=== PATIENT | female | born 1960 | race Two or more races ===

== ENCOUNTER 2025-03-03 18:45 | Inpatient (IN) | payer MEDICARE, OTHER ==
[~2025-03-03] VITALS: Ht 149.9 cm; Wt 78.7 kg
--- NOTE | 2025-03-03 19:19 | ED.PDOC ---
History of Present Illness HPI Comments 64-year-old female who came to ER for abnormal lab results. Patient states she has been having episodes of hematuria since January 10, 2025. She has been feeling very weak, fatigued and dizzy recently. Laboratory done earlier showed hemoglobin levels of 7.9 and was advised to come to the ER for further evalua tion management Chief Complaint: Abnormal LAB's Time Seen by MD: 19:19 Reviewed Notes: Nurses Notes Allergies: Coded Allergies: Acetaminophen (Verified Allergy, Unknown, 03/03/25) Iron (Verified Allergy, Unknown, 03/03/25) Oxycodone (Verified Allergy, Unknown, 03/03/25) Information Source: Patient Mode of Arrival: Ambulatory Severity: Moderate Timing: Weeks Duration: Since onset Past Medical History PAST MEDICAL HISTORY: COPD Surgical History: Denies all surgeries TEXTILE ARTIST History: Denies all TEXTILE ARTIST Hx Family History Family History: Reviewed,noncontributory to illness Social History Smoker: Non-Smoker Alcohol: Denies ETOH Use Drugs: Denies Drug Use Lives In: Home Constitutional: denies: chills, diaphoresis, fatigue, fever, malaise, sweats, weakness, others EENTM: denies: blurred vision, double vision, ear bleeding, ear discharge, ear drainage, ear pain, ear ringing, eye pain, eye redness, hearing loss, mouth pain, mouth swelling, nasal discharge, nose bleeding, nose congestion, nose pain, photophobia, tearing, throat pain, throat swelling, voice changes, others Respiratory: denies: cough, hemoptysis, orthopnea, SOB at rest, shortness of breath, SOB with excertion, stridor, wheezing, others Cardiovascular: denies: chest pain, dizzy spells, diaphoresis, Dyspnea on exertion, edema, irregular heart beat, left arm pain, lightheadedness, palpitations, PND, syncope, others Gastrointestinal: denies: abdomen distended, abdominal pain, blood streaked bowels, constipated, diarrhea, dysphagia, difficulty swallowing, hematemesis, melena, nausea, poor appetite, poor fluid intake, rectal bleeding, rectal pain, vomiting, others Genitourinary: reports: hematuria; denies: abnormal vagina bleeding, burning, dyspareunia, dysuria, flank pain, frequency, incontinence, pain, , vagina discharge, urgency, others Neurological: reports: dizziness, weakness; denies: fainting, headache, left sided numbness, left sided weakness, numbness, paresthesia, pre-existing deficit, right sided numbness, right sided weakness, seizure, speech problems, tingling, tremors, others Musculoskeletal: denies: back pain, gout, joint pain, joint swelling, muscle pain, muscle stiffness, neck pain, others Integumetry: denies: bruises, change in color, change in hair/nails, dryness, laceration, lesions, lumps, rash, wounds, others Allergic/Immunocompromised: denies: Difficulty Healing, Frequent Infections, Hives, Itching, others Hematologic/Lymphatic: denies: anemia, blood clots, easy bleeding, easy bruising, swollen glands, others Endocrine: denies: excessive hunger, excessive sweating, excessive thirst, excessive urination, flushing, intolerance to cold, intolerance to heat, unexplained weight gain, unexplained weight loss, others Psychiatric: denies: anxiety, bipolar disorder, depression, hopeless, panic disorder, schizophrenia, sleepless, suicidal, others Physical Exam General Appearance: No Apparent Distress, Normal HEENT: Normal ENT Inspection, Pharynx Normal, TMs Normal Neck: Full Range of Motion, Non-Tender, Normal, Normal Inspection Respiratory: Chest Non-Tender, Lungs Clear, No Accessory Muscle Use, No Respiratory Distress, Normal Breath Sounds Cardiovascular: No Edema, No JVD, No Murmur, No Gallop, Normal Peripheral Pulses, Regular Rate/Rhythm Breast Exam: Deferred Gastrointestinal: No Organomegaly, Non Tender, No Pulsatile Mass, Normal Bowel Sounds, Soft Genitalia: Deferred Pelvic: Deferred Rectal: Deferred Extremities: No calf tenderness, Normal capillary refill, Normal inspection, Normal range of motion, Non-tender, No pedal edema Musculoskeletal : Apperance: Normal Neurologic: Alert, 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 Was a procedure done?: No Differential Dx Considerations may include: Anemia, weakness, electrolyte imbalance, tract infection, cancer X-Ray, Labs, Meds, VS Vital Signs Date Time Temp Pulse Resp B/P (MAP) Pulse Ox O2 Delivery O2 Flow Rate FiO2 03/03/25 21:26 110 03/03/25 20:45 98.3 104 18 125/55 (78) 94 98.3 03/03/25 18:46 98.7 114 20 130/69 92 98.7 Lab Test 03/03/25 19:29 03/03/25 19:14 Range/Units White Blood Count 9.1 # 4.4-10.8 10^3/uL Red Blood Count 3.14 L 4.0-5.20 10^6/uL Hemoglobin 7.8 L 12.2-16.2 g/dL Hematocrit 24.1 L 36.0-46.0 % Mean Corpuscular Volume 76.8 L 80.0-100.0 fL Mean Corpuscular Hemoglobin 24.8 L 28.0-32.0 pg Mean Corpuscular Hemoglobin Concent 32.3 32.0-36.0 g/dL Red Cell Distribution Width 21.2 H 11.8-14.3 % Platelet Count 356 140-450 10^3/uL Mean Platelet Volume 7.2 6.9-10.8 fL Neutrophils (%) (Auto) 84.4 H 37.0-80.0 % Lymphocytes (%) (Auto) 6.1 L 10.0-50.0 % Monocytes (%) (Auto) 6.8 0.0-12.0 % Eosinophils (%) (Auto) 2.0 0.0-7.0 % Basophils (%) (Auto) 0.7 0.0-2.0 % Neutrophils # (Auto) 7.7 1.6-8.6 10 ^3/uL Lymphocytes # (Auto) 0.6 0.4-5.4 10 ^3/uL Monocytes # (Auto) 0.6 0-1.3 10 ^3/uL Eosinophils # (Auto) 0.2 0-0.8 10 ^3/uL Basophils # (Auto) 0.1 0-0.2 10 ^3/uL Nucleated Red Blood Cells 0.4 % Prothrombin Time 10.9 9.3-11.8 sec Prothrombin Time INR 1.03 0.9-1.15 Activated Partial Thromboplast Time 23.0 L 24.5-34.5 SEC Sodium Level 141 136-145 mmol/L Potassium Level 2.6 L 3.5-5.1 mmol/L Chloride Level 100 98-107 mmol/L Carbon Dioxide Level 29 20-31 mmol/L Anion Gap 12 5-15 Blood Urea Nitrogen 9 9-23 mg/dL Creatinine 0.77 0.550-1.02 mg/dL Glomerular Filtration Rate Calc 86 >90 mL/min BUN/Creatinine Ratio 11.7 10.0-20.0 Serum Glucose 144 H 74-106 mg/dL Calcium Level 8.8 8.7-10.4 mg/dL Total Bilirubin 0.3 0.2-1.0 mg/dL Aspartate Amino Transferase (AST) 29 13-40 U/L Alanine Aminotransferase (ALT) 24 7-40 U/L Alkaline Phosphatase 108 46-116 U/L Total Protein 7.0 5.7-8.2 g/dL Albumin 4.6 3.2-4.8 g/dL Urine Color Colorless Yellow Urine Clarity Clear Clear Urine pH 6.5 5.0-9.0 Urine Specific [place] 1.005 1.001-1.035 Urine Protein Negative Negative Urine Ketones Negative Negative Urine Blood Negative Negative /uL Urine Nitrite Negative Negative Urine Bilirubin Negative Negative Urine Urobilinogen Normal Negative mg/dL Urine Leukocyte Esterase Trace Negative /uL Urine RBC <1 0 - 4 /hpf Urine Microscopic WBC 4 0-5 /HPF Urine Squamous Epithelial Cells Few <5 /hpf Urine Bacteria None seen None Seen /hpf Urine Glucose Normal Normal mg/dL Current Medications Medications (Trade) Dose Ordered Sig/Eun Route Start Time Stop Time Status Last Admin Sodium Chloride 500 ml @ 500 mls/hr Q1H ONCE IVB 03/03/25 19:15 03/03/25 20:14 DC 03/03/25 20:56 Time of 1ST Reevaluation: 19:17 Reevaluation 1ST: Unchanged Patient Education/Counseling: Diagnosis, Treatment Family Education/Counseling: No Family Present SEPSIS Sepsis Screen Date sepsis recognized/suspect: Mar 03, 2025 Time Sepsis recognized/suspect: 1845 Recent Procedure: No On Antibiotic Therapy: No Respiratory Rate >20: No Heart Rate >90: Yes Temp<36 C (96.8 F) or >38.3 C: No SBP <90 or MAP <65 mmHG: No New Acute Mental Status Change: No Is the patient on CPAP, BIPAP,: No Physician Orders Type And Screen (03/03/25 19:14) Chest Xray 1 View (03/03/25 19:14) Packedcells -Active Bleeding (03/03/25 19:14) Potassium Er Tablet (Klor-Con Tablet) (03/03/25 22:15) Vital Signs Date Time Temp Pulse Resp B/P (MAP) Pulse Ox O2 Delivery O2 Flow Rate FiO2 03/03/25 21:26 110 03/03/25 20:45 98.3 104 18 125/55 (78) 94 98.3 03/03/25 18:46 98.7 114 20 130/69 92 98.7 Laboratory Tests Test 03/03/25 19:29 White Blood Count 9.1 10^3/uL (4.4-10.8) # Medications Medications Dose Ordered Sig/Eun Route Start Time Stop Time Status Last Admin Dose Admin Sodium Chloride 500 ml @ 500 mls/hr Q1H ONCE IVB 03/03/25 19:15 03/03/25 20:14 DC 03/03/25 20:56 Departure 1 Departure Time of Disposition: 22:05 Impression: Primary Impression: Hematuria Additional Impression: Symptomatic anemia Disposition: ADMITTED INPATIENT Admit to: Med Surg Condition: Guarded Comments 64-year-old female has been having hematuria for a few months. Patient was sent to the emergency department because they noted that she was anemic. Patient was given a blood transfusion. Patient will need to be admitted for stabilization of her blood loss and urology consultation for possible cystoscopy Critical Care Note Critical Care Time?: Yes (35 min-critical care time only) Critical care comment: Total critical care time: Approximately 36 minutes Due to a high probability of clinically significant, life threatening d eterioration, the patient required my highest level of preparedness to intervene emergently and I personally spent this critical care time directly and personally managing the patient. This critical care time included obtaining a history; examining the patient; pulse oximetry; ordering and review of studies; arranging urgent treatment with development of a management plan; evaluation of patient's response to treatment; frequent reassessment; and, discussions with other providers. This critical care time was performed to assess and manage the high probability of imminent, life-threatening deterioration that could result in multi-organ failure. It was exclusive of separately billable procedures and treating other patients. Stability Stability form required: No Heart Score Heart Score: Heart Score Response (Comments) Value History N/A 0 EKG N/A 0 Age N/A 0 Risk Factors N/A 0 Troponin N/A 0 Total 0 I personally scribed for ЕЛЕНА RODRIGUEZ MD ([email or web address]) on 03/03/25 at 19:19. Electronically submitted by Skyler Calero ([facility]). ЕЛЕНА RODRIGUEZ MD Mar 03, 2025 19:19
[2025-03-03 19:39] LABS: Hematocrit 24.1 % (36.0-46.0); Hemoglobin 7.8 g/dL (12.2-16.2); Mean Corpuscular Hemoglobin 24.8 pg (28.0-32.0); Mean Corpuscular Volume 76.8 fL (80.0-100.0); Nucleated Red Blood Cells % 0.4 %
[2025-03-03 19:54] LABS: INR 1.03 (0.9-1.15); Partial Thromboplastin Time 23.0 SEC (24.5-34.5); Prothrombin Time 10.9 sec (9.3-11.8)
[2025-03-03 20:05] LABS: Alanine Aminotransferase 24 U/L (7-40); Albumin 4.6 g/dL (3.2-4.8); Alkaline Phosphatase 108 U/L (46-116); Anion Gap 12 (5-15); BUN/Creatinine Ratio 11.7 (10.0-20.0); Calcium 8.8 mg/dL (8.7-10.4); Carbon Dioxide 29 mmol/L (20-31); Chloride 100 mmol/L (98-107); Sodium 141 mmol/L (136-145); Total Protein 7.0 g/dL (5.7-8.2)
[2025-03-03 20:12] LABS: Bilirubin, Total 0.3 mg/dL (0.2-1.0); Blood Urea Nitrogen 9 mg/dL (9-23); Glucose 144 mg/dL (74-106); Potassium 2.6 mmol/L (3.5-5.1)
[2025-03-03 20:33] LABS: Urine Protein, UAD Negative (Negative)
[2025-03-03] MEDS: SODIUM CHLORIDE 0.9% 500 ML IVB ONE (20:56)
--- NOTE | 2025-03-03 21:28 | ECG ---
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
--- NOTE | 2025-03-03 21:42 | DVH ---
EXAM: XY CHEST XRAY 1 VIEW CLINICAL HISTORY: SOB TECHNIQUE: Single frontal view of the chest WID: COMPARISON: None FINDINGS: Lines and tubes: None Chest: The heart size and pulmonary vasculature is within normal limits. Calcified plaque projects over the aortic arch. No pleural effusion, pneumothorax, or consolidation. Linear bibasilar scarring or atelectasis. The osseous structures are grossly intact. Degenerative changes of the bilateral shoulders. IMPRESSION: 1. No acute cardiopulmonary abnormality.
[2025-03-03] MEDS: POTASSIUM CHL 20 Meq TABLET PO ONE (22:34)
--- NOTE | 2025-03-03 22:54 | DVHHPRES ---
History of Present Illness Resident Creating Document: DOUG DAVID RESIDENT History of Present Illness Gaye Garcia is a 64-year-old female patient who presents to ED referred from outpatient clinic due to abnormal labs positive for microcytic anemia. Patient does report hematuria since 01/10/2025 with diagnosis of a bladder polyp, symptoms are associated with generalized weakness, fatigue and insomnia. Per patient, urology (Dr. Mann and Kaci HOTEL ASSOCIATE) had ordered clearance by drainage design coordinator and Cardiology, drainage design coordinator did clear patient but cardiology clearance was still pending due to prolonged appointment time. Denies any associated symptoms, including unintentional weight loss, fever, chills and dysuria. Past medical history: 2014 breast cancer with lumpectomy requiring chemotherapy and radiation, 2019 cervical cancer status post hysterectomy complicated with fistula requiring colostomy bag also required chemotherapy and radiation. 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 Surgical history: Hysterectomy, colostomy bag placement in two opportunities, lumpectomy, right hip replacement, spine surgery Family history: Sister had breast cancer Social history: Lives in [place] alone, sister lives next door (she is her next of kin). Current tobacco abuse (50 pack-year history of smoking). Denies current alcohol and other drug abuse Allergies: Percocet Home medication: [place], albuterol, Trelegy, gabapentin, furosemide, esomeprazole PCP: Dr. Minh Hines Control Systems Drafting Officer: Dr. Aquino Patient seen and examined at bedside. Currently has no new complaints. We will admit to telemetry, obtain Cardiology consult for cardiological clearance in urology consult for eventual cystoscopy during inpatient. Patient wants to sign AMA to go smoke, offered nicotine patches and she accepted. Past Medical History Per HPI Past Surgical History Per HPI Family History Per HPI Past Social History Per HPI Review of Systems Review of Systems Per HPI Allergies: Coded Allergies: Acetaminophen (Verified Allergy, Unknown, 03/03/25) Iron (Verified Allergy, Unknown, 03/03/25) Oxycodone (Verified Allergy, Unknown, 03/03/25) Exam Vital Signs Vital Signs Date Time Temp Pulse Resp B/P (MAP) Pulse Ox O2 Delivery O2 Flow Rate FiO2 03/03/25 21:26 110 03/03/25 20:45 98.3 18 125/55 (76) 94 98.3 Exam Patient lying in bed, in no acute distress General: Lucid, afebrile, mucosae are dry, pale conjunctivae Cardiovascular: Normal S1 and S2, tachycardia. No murmurs, gallops or rubs Respiratory: Regular ventilation mechanics, tachypnea. Reduced generalized lung sounds Abdomen: Soft, nontender, no organomegaly, normal bowel sounds MSK/skin: Mobilizes 4 limbs. Skin is dry and warm Neurological: Oriented in 3 spheres. No motor no sensitive deficits. Pupils are isocoric and reactive Labs/Xrays Labs Test 03/03/25 19:29 03/03/25 19:14 Range/Units White Blood Count 9.1 # 4.4-10.8 10^3/uL Red Blood Count 3.14 L 4.0-5.20 10^6/uL Hemoglobin 7.8 L 12.2-16.2 g/dL Hematocrit 24.1 L 36.0-46.0 % Mean Corpuscular Volume 76.8 L 80.0-100.0 fL Mean Corpuscular Hemoglobin 24.8 L 28.0-32.0 pg Mean Corpuscular Hemoglobin Concent 32.3 32.0-36.0 g/dL Red Cell Distribution Width 21.2 H 11.8-14.3 % Platelet Count 356 140-450 10^3/uL Mean Platelet Volume 7.2 6.9-10.8 fL Neutrophils (%) (Auto) 84.4 H 37.0-80.0 % Lymphocytes (%) (Auto) 6.1 L 10.0-50.0 % Monocytes (%) (Auto) 6.8 0.0-12.0 % Eosinophils (%) (Auto) 2.0 0.0-7.0 % Basophils (%) (Auto) 0.7 0.0-2.0 % Neutrophils # (Auto) 7.7 1.6-8.6 10 ^3/uL Lymphocytes # (Auto) 0.6 0.4-5.4 10 ^3/uL Monocytes # (Auto) 0.6 0-1.3 10 ^3/uL Eosinophils # (Auto) 0.2 0-0.8 10 ^3/uL Basophils # (Auto) 0.1 0-0.2 10 ^3/uL Nucleated Red Blood Cells 0.4 % Prothrombin Time 10.9 9.3-11.8 sec Prothrombin Time INR 1.03 0.9-1.15 Activated Partial Thromboplast Time 23.0 L 24.5-34.5 SEC Sodium Level 141 136-145 mmol/L Potassium Level 2.6 L 3.5-5.1 mmol/L Chloride Level 100 98-107 mmol/L Carbon Dioxide Level 29 20-31 mmol/L Anion Gap 12 5-15 Blood Urea Nitrogen 9 9-23 mg/dL Creatinine 0.77 0.550-1.02 mg/dL Glomerular Filtration Rate Calc 86 >90 mL/min BUN/Creatinine Ratio 11.7 10.0-20.0 Serum Glucose 144 H 74-106 mg/dL Calcium Level 8.8 8.7-10.4 mg/dL Total Bilirubin 0.3 0.2-1.0 mg/dL Aspartate Amino Transferase (AST) 29 13-40 U/L Alanine Aminotransferase (ALT) 24 7-40 U/L Alkaline Phosphatase 108 46-116 U/L Total Protein 7.0 5.7-8.2 g/dL Albumin 4.6 3.2-4.8 g/dL Urine Color Colorless Yellow Urine Clarity Clear Clear Urine pH 6.5 5.0-9.0 Urine Specific [place] 1.005 1.001-1.035 Urine Protein Negative Negative Urine Ketones Negative Negative Urine Blood Negative Negative /uL Urine Nitrite Negative Negative Urine Bilirubin Negative Negative Urine Urobilinogen Normal Negative mg/dL Urine Leukocyte Esterase Trace Negative /uL Urine RBC <1 0 - 4 /hpf Urine Microscopic WBC 4 0-5 /HPF Urine Squamous Epithelial Cells Few <5 /hpf Urine Bacteria None seen None Seen /hpf Urine Glucose Normal Normal mg/dL SEPSIS Sepsis Screen Date sepsis recognized/suspect: Mar 03, 2025 Time Sepsis recognized/suspect: 1845 Recent Procedure: No On Antibiotic Therapy: No Respiratory Rate >20: No Heart Rate >90: Yes Temp<36 C (96.8 F) or >38.3 C: No SBP <90 or MAP <65 mmHG: No New Acute Mental Status Change: No Is the patient on CPAP, BIPAP,: No Physician Orders Type And Screen (03/03/25 19:14) Chest Xray 1 View (03/03/25 19:14) Admit (03/03/25 22:52) Code Status (03/03/25 22:52) Acetaminophen Tablet (Tylenol Tablet) (03/03/25 23:00) Complete Blood Count (03/04/25 04:00) Comprehensive Metabolic Panel (03/04/25 04:00) Npo (Nothing By Mouth) Diet (03/04/25 Breakfast) Echo 2d Mode Cardiac Dop (03/03/25 22:52) Morphine Sulfate Injection (03/03/25 23:00) Oxygen By Nasal Cannula (03/03/25 22:52) Stat Ekg For Chest Pain (03/03/25 22:52) Notify Of Changes From Base (03/03/25 22:52) Dietetic Technician For 24 Hours (03/03/25 22:52) Emergency Dysrhythmia Protocol (03/03/25 22:52) Rhythm Strips Once Every Shift (03/03/25 22:52) Vital Signs Date Time Temp Pulse Resp B/P (MAP) Pulse Ox O2 Delivery O2 Flow Rate FiO2 03/03/25 21:26 110 03/03/25 20:45 98.3 104 18 125/55 (78) 94 98.3 03/03/25 18:46 98.7 114 20 130/69 92 98.7 Laboratory Tests Test 03/03/25 19:29 White Blood Count 9.1 10^3/uL (4.4-10.8) # Medications Medications Dose Ordered Sig/Eun Route Start Time Stop Time Status Last Admin Dose Admin Potassium Chloride 40 meq ONCE ONCE PO 03/03/25 22:15 03/03/25 22:16 DC 03/03/25 22:34 40 MEQ Sodium Chloride 500 ml @ 500 mls/hr Q1H ONCE IVB 03/03/25 19:15 03/03/25 20:14 DC 03/03/25 20:56 500 MLS/HR Assessment/Plan Assessment/Plan Sepsis probably secondary to pneumonia Acute on chronic respiratory failure Community-acquired pneumonia Gram-positive/Gram-negative COPD exacerbation Patient was tachycardic, presents soft blood pressures, and neutrophilia Patient currently on oxygen therapy (nasal cannula 2 L/min). Normally she uses this amount of oxygen only at nighttime Currently on bronchodilators, IV steroids, IV fluids and empiric IV antibiotic (ceftriaxone and azithromycin) Obtain leo cultures (blood, urine and sputum). COVID and influenza swabs were negative Severe microcytic anemia Iron deficient anemia Hematuria secondary to bladder polyp Patient presents microcytic anemia laboratories. Monitor H&H Consulted cardiology for clearance for eventual cystoscopy Consulted urology specialist to evaluate completing cystoscopy during admission Transfuse PRBCs when hemoglobin is less than seven Patient required IV fluids for resuscitation. Awaiting echocardiogram to evaluate LVEF UA shows microscopic hematuria EMR shows the patient has iron allergy, per patient she does not have any allergies. Currently ordered IV iron since patient says she has no allergies. Hypokalemia Hypomagnesemia Hypophosphatemia Replenish Polyneuropathy likely secondary to chemotherapy/radiotherapy Continue gabapentin Newly diagnosed prediabetes Currently on insulin sliding scale Gave advice on healthy lifestyle habits Tobacco abuse Non adherence Fifty pack-year history of smoking. Consult patient is strongly on tobacco cessation for over 16 minutes Offer patient nicotine patches. Patient signed AMA to go out smoking Insomnia Indicated melatonin History of breast and cervical cancer status post surgery, chemotherapy and radiation Complicated enterocutaneous fistulas - status post colostomy Per patient she was cleared by drainage design coordinator as outpatient Goals of care discussed with patient for over 18 minutes: Full code status Discussed plan with Dr. Murray, patient and nurses: Consulted Cardiology to get cardiological clearance for eventual cystoscopy, pending urological evaluation to determine whether cystoscopy can be completed as inpatient. Patient has poor prognosis. Plan discussed with: Patient, Other (Nurses) My Orders Orders - DOUG DAVID RESIDENT Procedure Category Date Status Time Admit ADMIT 03/03/25 Transmitted 22:52 Code Status CODE 03/03/25 Transmitted 22:52 Acetaminophen Tablet PHA 03/03/25 Transmitted (Tylenol Tablet) 23:00 Complete Blood Count LAB 03/04/25 Verified 04:00 Comprehensive LAB 03/04/25 Verified Metabolic Panel 04:00 Npo (Nothing By DIET 03/04/25 Transmitted Mouth) Diet Breakfast Echo 2d Mode Cardiac US 03/03/25 Transmitted DOP 22:52 Morphine Sulfate PHA 03/03/25 Transmitted Injection 23:00 Oxygen By Nasal RT 03/03/25 Transmitted Cannula 22:52 Stat Ekg For Chest AJAY 03/03/25 Transmitted Pain 22:52 Notify Of Changes [facility] 03/03/25 Transmitted From Base 22:52 Dietetic Technician For [facility] 03/03/25 Transmitted 24 Hours 22:52 Emergency Dysrhythmia [facility] 03/03/25 Transmitted Protocol 22:52 Rhythm Strips Once [facility] 03/03/25 Transmitted Every Shift 22:52 Date of Service: Mar 03, 2025 Billing Provider: PARVEZ MENDOZA MD Common Visit Codes: 38505-QOHYGEE INP/OBS CARE (HIGH) Secondary Visit Codes: 53932-ESSMAOSU CARE PLAN 30 MINUTES DOUG DAVID RESIDENT Mar 03, 2025 22:54
[2025-03-03] MEDS ORDERED: ACETAMINOPHEN 325 MG TAB PO PRN (23:00)
[2025-03-03] MEDS ORDERED: MORPHINE SULFATE INJ 2 MG/ml SYRG IV PRN (23:00)
[2025-03-04] VITALS (14 sets, daily range): BP systolic 92–127; BP diastolic 43–63; PULSE 73–110; RESP 17–20; TEMP 97.3–98.3; O2SAT 2–100
[2025-03-04] MEDS ORDERED: LEVALBUTEROL HCL 1.25 MG/3 ML NEB NEB SCH
[2025-03-04] MEDS: PANTOPRAZOLE 40 MG/10 ML VIAL INJ IV ONE (00:03)
[2025-03-04] MEDS: AZITHROMYCIN 250 MG TAB PO ONE (00:41)
[2025-03-04 00:43] LABS: Magnesium 1.1 mg/dL (1.6-2.6)
[2025-03-04 00:48] LABS: Ferritin 5.1 ng/mL (10-291)
--- NOTE | 2025-03-04 00:55 | DVH ---
Exam: US BLADDER History: Bladder polyp Comparison: None Date: 03/04/2025 12:16 AM Technique: Grayscale and color Doppler ultrasound of the pelvis was obtained. Multiple images of the bladder were obtained. Findings: Suboptimal assessment with poor visualization of the bladder. There is bladder wall thickening. No d efinite lesions are visualized. IMPRESSION: 1. Suboptimal assessment without definite bladder lesion visualized. Given suboptimal assessment, CT is suggested in further evaluation as clinically indicated.
[2025-03-04 01:11] LABS: Iron 13.0 ug/dL (50-170)
[2025-03-04 01:30] LABS: Total Iron Binding Capacity 433.0 ug/dL (250-425)
[2025-03-04] MEDS: MELATONIN 5 MG TAB PO ONE (01:45)
[2025-03-04 01:50] LABS: Cholesterol 107.0 mg/dL (< 200)
[2025-03-04 01:51] LABS: HDL Cholesterol 33.0 mg/dL (40-59); Triglycerides 157.0 mg/dL (< 150)
[2025-03-04 02:10] LABS: Amphetamine Screen, Urine Neg (NEGATIVE); Barbiturate Scree,Urine Neg (NEGATIVE); Benzodiazephine Screen, Urine Neg (NEGATIVE); Opiate Scree,Urine Neg (NEGATIVE); Phencyclidine Screen, Urine Neg (NEGATIVE)
[2025-03-04 02:11] LABS: Cannabinoid Screen, Urine Neg (NEGATIVE); Cocaine Screen, Urine Neg (NEGATIVE)
[2025-03-04 05:44] LABS: COVID19 ANTIGEN SOFIA FIA NEGATIVE (NEGATIVE)
[2025-03-04] MEDS: GABAPENTIN 100 MG CAP PO SCH (05:51)
[2025-03-04] MEDS ORDERED: FURO1TAB31 PO (06:25)
[2025-03-04] MEDS ORDERED: FLUT1AER3 IN (06:27)
[2025-03-04] MEDS ORDERED: GABA-1308 PO (06:27)
[2025-03-04] MEDS ORDERED: OMEP20TA PO (06:27)
[2025-03-04] MEDS: IPRATROPIUM BROM 0.5 MG/2.5ML INH SOL NEB SCH (06:59)
[2025-03-04] MEDS: LEVALBUTEROL HCL 1.25 MG/3 ML NEB NEB SCH (06:59)
[2025-03-04 07:09] LABS: Hematocrit 22.4 % (36.0-46.0); Hemoglobin 7.1 g/dL (12.2-16.2); Mean Corpuscular Hemoglobin 24.5 pg (28.0-32.0); Mean Corpuscular Volume 77.3 fL (80.0-100.0); Nucleated Red Blood Cells % 0.2 %
[2025-03-04 07:29] LABS: Alanine Aminotransferase 18 U/L (7-40); Alkaline Phosphatase 91 U/L (46-116); Anion Gap 12 (5-15); BUN/Creatinine Ratio 11.7 (10.0-20.0); Carbon Dioxide 29 mmol/L (20-31); Chloride 103 mmol/L (98-107); Sodium 144 mmol/L (136-145); Total Protein 6.0 g/dL (5.7-8.2)
[2025-03-04 07:30] LABS: Albumin 3.9 g/dL (3.2-4.8)
[2025-03-04 07:31] LABS: Blood Urea Nitrogen 7 mg/dL (9-23); Calcium 8.4 mg/dL (8.7-10.4); Glucose 111 mg/dL (74-106); Potassium 2.6 mmol/L (3.5-5.1)
[2025-03-04 07:38] LABS: Bilirubin, Total 0.3 mg/dL (0.2-1.0)
[2025-03-04] MEDS: PANTOPRAZOLE 40 MG/10 ML VIAL INJ IV SCH (09:26)
[2025-03-04] MEDS: NICOTINE 21MG/24 HR TOPICAL PATCH TD SCH (09:27)
--- NOTE | 2025-03-04 09:30 | DVHINCON2 ---
Date Seen: Mar 04, 2025 Referring Physician MD Natasha resident Reason for Consultation Cardiac risk stratification History of Present Illness This is a 64-year-old female patient who presents to the emergency room with chief complaint of hematuria and lightheadedness. The patient reports that she has been experiencing hematuria since January 10, 2025. A few days before emergency room arrival, she noticed that she began to feel lightheaded which prompted her to come to the emergency room for further evaluation. Cardiology has now been consulted for cardiac risk stratification for upcoming cystoscopy. Initial twelve lead electrocardiogram done in the emergency room reveals sinus tachycardia with nonspecific ST segment changes to lateral leads. She denies any cardiac symptoms such as chest pain, shortness of breath, or palpitations. Significant past medical history includes congestive heart failure, COPD, breast cancer and cervical cancer status post chemotherapy and radiation as well as left breast lumpectomy and total hysterectomy, and rectovaginal fistula status post colostomy. 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 Past Medical History Past medical history reviewed. No other significant than mentioned above. Past Surgical History Left breast lumpectomy Total hysterectomy Colostomy Family History: Seizure disorder G8 FATHER Family History Family history reviewed. Social History Patient has a 20 pack-year history, smokes a half a pack per day Denies illicit drug use Denies alcohol use Allergies: Coded Allergies: Acetaminophen (Verified Allergy, Unknown, 03/03/25) Iron (Verified Allergy, Unknown, 03/03/25) Oxycodone (Verified Allergy, Unknown, 03/03/25) Home Meds Reported Medications Omeprazole (Gnp Omeprazole) 20 Mg Tab, 1 TAB PO DAILY, #90 TAB 1 Refill 03/04/25 Gabapentin (Gabapentin) 100 Mg Cap, 1 CAP PO TID, #90 CAP 2 Refills 03/04/25 Acyavdtjahs-Znsvfpczjwqr-Rhxqx (Trelegy Ellipta 100-62.5-25 Mcg/INH) 1 Aer Aer, 1 AER IN, AER 03/04/25 Furosemide (Lasix) 40 Mg Tab, 40 MG PO DAILY, TAB 03/04/25 Home Meds Home medications reviewed. Current Medications Current Medications Medications (Trade) Dose Ordered Sig/Eun Route PRN Reason Start Time Stop Time Status Last Admin Acetaminophen (Tylenol Tablet) 325 mg Q4HP PRN PO MILD PAIN (1-3 PAIN SCALE) 03/03/25 23:00 03/03/25 23:07 DC Morphine Sulfate 2 mg Q4HPRN PRN IV SEVERE PAIN (7-10 PAIN SCALE) 03/03/25 23:00 Pantoprazole Sodium (Protonix) 40 mg BID IV 03/04/25 10:00 Nicotine (Nicoderm 21MG/ 24HR) 1 patch DAILY TD 03/04/25 10:00 Melatonin (Melatonin) 5 mg HS PO 03/04/25 22:00 Ceftriaxone Sodium 50 ml @ 100 mls/hr DAILY@09 IV 03/05/25 09:00 Azithromycin (Zithromax Tablet) 250 mg DAILY PO 03/05/25 10:00 Ipratropium [place] (Atrovent Medneb) 0.[address] [facility] 03/04/25 06:00 Levalbuterol HCl (Xopenex Medneb) 0.625 mg Q6HWA NEB 03/04/25 00:00 03/04/25 00:45 DC Gabapentin (Neurontin Capsule) 100 mg TID PO 03/04/25 06:00 03/04/25 05:51 Levalbuterol HCl (Xopenex Medneb) 0.625 mg Q6HWA NEB 03/04/25 06:00 Review of Systems Constitutional: No symptom reported Ears, Nose, & Throat: No symptom reported Eyes: No symptom reported Neurological: Lightheadedness Pulmonary/Respiratory: No symptoms reported Cardiovascular: No symptom reported Gastrointestinal: No symptom reported Genitourinary: Dysuria Musculoskeletal: No symptom reported Skin: No symptom reported Psychiatric: No symptom reported Endocrine: No symptom reported Hematologic/Lymphatic: No symptom reported Vital Signs Vital Signs Date Time Temp Pulse Resp B/P (MAP) Pulse Ox O2 Delivery O2 Flow Rate FiO2 03/04/25 05:58 98.1 86 17 92/43 (59) 96 98.1 03/04/25 03:40 Nasal Cannula* 2 28 Physical Exam General Appearance: Cooperative. Obese Pulmonary/Respiratory: Clear, bilateral breaths sounds. Cardiovascular/Chest: Regular rate and rhythm. Peripheral Pulses: 2+ Radial (R). 2+ Radial (L). 2+ Pedal (R). 2+ Pedal (L) Abdominal Exam: Normal bowel sounds. Ankle Exam: Negative ankle edema Lower extremities: Negative lower extremity edema Neuro/Mental Status: A/OX4, coherent. Thoughts/Psych: Normal thought pattern. Appropriate mood and affect. Good judgment and insight. Appearance: No acute distress. Skin Exam: Normal inspection. Normal color. Warm and dry. Labs/Diagnostic Data Labs Test 03/04/25 05:19 03/04/25 04:54 03/04/25 00:33 03/03/25 19:29 Range/Units White Blood Count 6.5 # 4.4-10.8 10^3/uL Red Blood Count 2.90 L 4.0-5.20 10^6/uL Hemoglobin 7.1 L 12.2-16.2 g/dL Hematocrit 22.4 L 36.0-46.0 % Mean Corpuscular Volume 77.3 L 80.0-100.0 fL Mean Corpuscular Hemoglobin 24.5 L 28.0-32.0 pg Mean Corpuscular Hemoglobin Concent 31.6 L 32.0-36.0 g/dL Red Cell Distribution Width 20.9 H 11.8-14.3 % Platelet Count 305 140-450 10^3/uL Mean Platelet Volume 7.5 6.9-10.8 fL Neutrophils (%) (Auto) 81.0 H 37.0-80.0 % Lymphocytes (%) (Auto) 7.6 L 10.0-50.0 % Monocytes (%) (Auto) 7.6 0.0-12.0 % Eosinophils (%) (Auto) 3.0 0.0-7.0 % Basophils (%) (Auto) 0.8 0.0-2.0 % Neutrophils # (Auto) 5.3 1.6-8.6 10 ^3/uL Lymphocytes # (Auto) 0.5 0.4-5.4 10 ^3/uL Monocytes # (Auto) 0.5 0-1.3 10 ^3/uL Eosinophils # (Auto) 0.2 0-0.8 10 ^3/uL Basophils # (Auto) 0.1 0-0.2 10 ^3/uL Nucleated Red Blood Cells 0.2 % Sodium Level 144 136-145 mmol/L Potassium Level 2.6 L 3.5-5.1 mmol/L Chloride Level 103 98-107 mmol/L Carbon Dioxide Level 29 20-31 mmol/L Anion Gap 12 5-15 Blood Urea Nitrogen 7 L 9-23 mg/dL Creatinine 0.60 0.550-1.02 mg/dL Glomerular Filtration Rate Calc 100 >90 mL/min BUN/Creatinine Ratio 11.7 10.0-20.0 Serum Glucose 111 H 74-106 mg/dL Calcium Level 8.4 L 8.7-10.4 mg/dL Total Bilirubin 0.3 0.2-1.0 mg/dL Aspartate Amino Transferase (AST) 24 13-40 U/L Alanine Aminotransferase (ALT) 18 7-40 U/L Alkaline Phosphatase 91 46-116 U/L Total Protein 6.0 5.7-8.2 g/dL Albumin 3.9 3.2-4.8 g/dL Influenza Type A Antigen Negative Negative Influenza Type B Antigen Negative Negative SARS-CoV-2 Antigen (Rapid) Negative NEGATIVE Lactic Acid Level 1.1 0.4-2.0 mmol/L Iron Level 13 L 50-170 ug/dL Total Iron Binding Capacity 433 H 250-425 ug/dL Percent Iron Saturation 3.0 L 15-50 % Reticulocyte Count (auto) 3.30 H 0.5-1.5 % Prothrombin Time 10.9 9.3-11.8 sec Prothrombin Time INR 1.03 0.9-1.15 Activated Partial Thromboplast Time 23.0 L 24.5-34.5 SEC Hemoglobin A1c 5.9 H <5.7 % A1C Phosphorus Level 2.3 L 2.4-5.1 mg/dL Magnesium Level 1.1 L 1.6-2.6 mg/dL Ferritin 5.1 L 10-291 ng/mL Triglycerides Level 157 H < 150 mg/dL Cholesterol Level 107 < 200 mg/dL LDL Cholesterol 65 < 100 mg/dL HDL Cholesterol 33 L 40-59 mg/dL Vitamin B12 Level 469 211-911 pg/mL Vitamin D 25-Hydroxy 30.6 30.0-100 ng/mL Folic Acid 11.63 >5.38 ng/mL Thyroid Stimulating Hormone (TSH) 2.68 0.55-4.78 uIU/mL Urine Opiates Screen Neg NEGATIVE Urine Fentanyl Screen Neg NEGATIVE Urine Barbiturates Screen Neg NEGATIVE Urine Phencyclidine Screen Neg NEGATIVE Urine Amphetamines Screen Neg NEGATIVE Urine Benzodiazepines Screen Neg NEGATIVE Urine Cocaine Screen Neg NEGATIVE Urine Cannabinoids Screen Neg NEGATIVE Test 03/03/25 19:14 Range/Units Urine Color Colorless Yellow Urine Clarity Clear Clear Urine pH 6.5 5.0-9.0 Urine Specific [place] 1.005 1.001-1.035 Urine Protein Negative Negative Urine Ketones Negative Negative Urine Blood Negative Negative /uL Urine Nitrite Negative Negative Urine Bilirubin Negative Negative Urine Urobilinogen Normal Negative mg/dL Urine Leukocyte Esterase Trace Negative /uL Urine RBC <1 0 - 4 /hpf Urine Microscopic WBC 4 0-5 /HPF Urine Squamous Epithelial Cells Few <5 /hpf Urine Bacteria None seen None Seen /hpf Urine Glucose Normal Normal mg/dL Assessment Preprocedural cardiovascular examination Chronic HFpEF, NYHA class II Acute anemia Hematuria Hypokalemia Hypomagnesemia COPD Prediabetes History of breast and cervical cancer Plan/Recommendation We will continue with the following plan/recommendations (): Transthoracic echocardiogram reviewed with and reveals EF approximately 55-60%. Revised Cardiac Risk Index (Johnathan criteria): 1 point (1.1% risk of major cardiac event). The patient denies any underlying history of coronary artery disease. At this time patient has no cardiac symptoms. Prior to admission, the patient reports a good functional capacity. Per cardiology standpoint, patient is at an acceptable-risk for moderate-risk surgery. There is no additional cardiac work-up indicated prior to surgery. Thank you for allowing us to participate in this patient's care. Please call if you have any questions or concerns. Critical care time spent: 44 minutes This medical document was created using an electronic medical record system with voice recognition software and computerized dictation system. Although this document has been carefully reviewed, there might still be some phonetic and typographical errors. Occasional wrong-word or ``sound-alike substitutions may have occurred due to the inherent limitations of voice recognition software. These areas are purely typographical due to imperfections of the software pro grams and do not reflect any compromise in the patient's medical care. Please read the chart carefully and recognize, using context, where these substitutions have occurred. Plan discussed with: Patient NYHA Physical activity limitations: Class2(Slight)fatigue,sob (palpitatns, angina w activityv) Date of Service: Mar 04, 2025 Billing Provider: NURIA REID Cardiology Common Codes: [id number] INP/OBS CARE (High) Cardiology Consultation Codes: [id number] CONSULT <45MIN NURIA REID Mar 04, 2025 09:30
[2025-03-04] MEDS ORDERED: MAGNESIUM SULFATE 1GM/100ML 100 ML IV SCH (12:00)
[2025-03-04] MEDS ORDERED: IRON SUCROSE COMPLEX 110 ML IV SCH (12:00)
[2025-03-04] MEDS ORDERED: DEXTROSE (50%) 50ML SYRG IV PRN (12:00)
[2025-03-04] MEDS ORDERED: POTASSIUM CHL 20MEQ/100ML 100 ML IV SCH (12:00)
[2025-03-04] MEDS ORDERED: POTASSIUM PHOSPHATE 22 MEQ in SODIUM CHL 0.9% 100 ML IV ONE (12:00)
[2025-03-04] MEDS: POTASSIUM CHL 20MEQ/100ML 100 ML IV ONE (12:08)
[2025-03-04] MEDS: methylPREDNISolone SOD SUCC 40 MG/ML VL IV ONE (12:14)
--- NOTE | 2025-03-04 14:08 | DVHPN2 ---
Subjective 64-year-old female who was admitted for hematuria that she had for almost 2 months and she has seen Urology as an outpatient was scheduled to have a cystoscopy however she needed cardiology clearance Now she comes anemic her hemoglobin was 7.8 which dropped to 7.1 this morning and therefore she will be transfused with packed RBCs Consulted cardiology and urology Changes from previous H/P or p: Changes Objective Vitals Vital Signs Date Time Temp Pulse Resp B/P (MAP) Pulse Ox O2 Delivery O2 Flow Rate FiO2 03/04/25 12:58 97.9 73 19 108/54 (72) 99 97.9 03/04/25 10:00 Nasal Cannula 2.0 03/04/25 10:00 28 Intake/Output Intake and Output 03/04/25 07:00 Intake Total 200 ml Output Total 100 ml Balance 100 ml Intake Oral 200 ml Output Stool Total 100 ml General Appearance: Alert, Oriented X3, Cooperative Lungs: Clear to auscultation, Normal air movement Cardiovascular: Regular rate, Normal S1, Normal S2 Abdomen: Normal bowel sounds, Soft, No tenderness Extremities: No edema Medications Current Medications Medications Dose Ordered Sig/Eun Route Start Time Stop Time Status Last Admin Dose Admin Morphine Sulfate 2 mg Q4HPRN PRN IV 03/03/25 23:00 Pantoprazole Sodium 40 mg BID IV 03/04/25 10:00 03/04/25 09:26 40 MG Nicotine 1 patch DAILY TD 03/04/25 10:00 03/04/25 09:27 1 PATCH Melatonin 5 mg HS PO 03/04/25 22:00 Ceftriaxone Sodium 50 ml @ 100 mls/hr DAILY@09 IV 03/05/25 09:00 Azithromycin 250 mg DAILY PO 03/05/25 10:00 Ipratropium [place] 0.5 mg Q6HWA NEB 03/04/25 06:00 Gabapentin 100 mg TID PO 03/04/25 06:00 03/04/25 13:33 100 MG Levalbuterol HCl 0.625 mg Q6HWA NEB 03/04/25 06:00 Potassium Chloride 100 ml @ 50 mls/hr Q2H IV 03/04/25 12:00 03/04/25 15:59 Methylprednisolone Sodium Succinate 40 mg BID IV 03/04/25 22:00 Diagnostic Test (Pha) 1 strip ACHS 03/04/25 17:00 Insulin Human Regular ACHS SC 03/04/25 17:00 Dextrose 50 ml UD PRN IV 03/04/25 12:00 Magnesium Sulfate/ Dextrose 100 ml @ 100 mls/hr Q1HR IV 03/04/25 16:00 03/04/25 17:59 Laboratory Results Laboratory Tests 03/04/25 05:19 Chemistry Test 03/03/25 19:29 03/04/25 05:19 Albumin 4.6 g/dL (3.2-4.8) 3.9 g/dL (3.2-4.8) Calcium Level 8.8 mg/dL (8.7-10.4) 8.4 mg/dL (8.7-10.4) L Magnesium Level 1.1 mg/dL (1.6-2.6) L Phosphorus Level 2.3 mg/dL (2.4-5.1) L Total Protein 7.0 g/dL (5.7-8.2) 6.0 g/dL (5.7-8.2) Coagulation Test 03/03/25 19:29 Prothrombin Time 10.9 sec (9.3-11.8) Prothrombin Time INR 1.03 (0.9-1.15) Activated Partial Thromboplast Time 23.0 SEC (24.5-34.5) L Lipid panel Test 03/03/25 19:29 Cholesterol Level 107 mg/dL (< 200) HDL Cholesterol 33 mg/dL (40-59) L Triglycerides Level 157 mg/dL (< 150) H LFT Test 03/03/25 19:29 03/04/25 05:19 Alanine Aminotransferase (ALT) 24 U/L (7-40) 18 U/L (7-40) Alkaline Phosphatase 108 U/L (46-116) 91 U/L (46-116) Aspartate Amino Transferase (AST) 29 U/L (13-40) 24 U/L (13-40) Total Bilirubin 0.3 mg/dL (0.2-1.0) 0.3 mg/dL (0.2-1.0) HgA1c, TSH Test 03/03/25 19:29 Hemoglobin A1c 5.9 % A1C (<5.7) H Thyroid Stimulating Hormone (TSH) 2.68 uIU/mL (0.55-4.78) Urinalysis Test 03/03/25 19:14 Urine Color Colorless (Yellow) Urine Clarity Clear (Clear) Urine pH 6.5 (5.0-9.0) Urine Specific [place] 1.005 (1.001-1.035) Urine Protein Negative (Negative) Urine Ketones Negative (Negative) Urine Blood Negative /uL (Negative) Urine Nitrite Negative (Negative) Urine Bilirubin Negative (Negative) Urine Urobilinogen Normal mg/dL (Negative) Urine Leukocyte Esterase Trace /uL (Negative) Urine RBC <1 /hpf (0 - 4) Urine Microscopic WBC 4 /HPF (0-5) Urine Squamous Epithelial Cells Few /hpf (<5) Urine Bacteria None seen /hpf (None Seen) Urine Glucose Normal mg/dL (Normal) Microbiology Microbiology Date/Time Source Procedure Growth Status 03/04/25 04:54 Nose MRSA Screen - Final Complete Assessment/Plan Assessment/Plan Hematuria Anemia due to iron deficiency and blood loss Congestive heart failure, systolic versus diastolic, acute on chronic COPD Chronic respiratory failure on home O2 Prediabetic History of breast cancer and cervical cancer Acute hypoxic respiratory failure Hypokalemia Hypomagnesemia Hypophosphatemia 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 daily Cardiology consult Plan discussed with: Patient My Orders Orders - SHASHANK LOCKETT MD Procedure Category Date Status Time Cardiac DIET 03/04/25 Transmitted Diet-2gna,Lofat,Lochol Lunch Date of Service: Mar 04, 2025 Billing Provider: SHASHANK LOCKETT MD Common Visit Codes: NOT BILLABLE SHASHANK LOCKETT MD Mar 04, 2025 14:08
[2025-03-04] MEDS: IOHEXOL 300 MG/ML 100ML BOTTLE IJ ONE (14:16)
[2025-03-04] MEDS: POTASSIUM CHL 20 Meq TABLET PO ONE (14:31)
[2025-03-04] MEDS: FUROSEMIDE 40 MG TAB PO ONE (14:31)
[2025-03-04] MEDS: MAGNESIUM SULFATE 1GM/100ML 100 ML IV SCH (14:32)
--- NOTE | 2025-03-04 16:51 | DVHINCON2 ---
Date of service: Mar 04, 2025 History of Present Illness History Source: Patient, RN Notes, MD Notes, Old Records Exam Limitations: No limitations HPI 64 yo female hx of total hysterectomy and radiation for treatment of cervical cancer. She has been having gross hematuria with clots for the past month, sometimes it is difficult to void. A recent MRI showed a 1 cm nodule in the right posterior bladder near the trigone with enhancement. She is pending cystoscpy with TURBT but needs cardiac clearance. Past medical history: 2014 breast cancer with lumpectomy requiring chemotherapy and radiation, 2019 cervical cancer status post hysterectomy complicated with fistula requiring colostomy bag also required chemotherapy and radiation. 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 Surgical history: Hysterectomy, colostomy bag placement in two opportunities, lumpectomy, right hip replacement, spine surgery Family history: Sister had breast cancer Social history: Lives in [place] alone, sister lives next door (she is her next of kin). Current tobacco abuse (50 pack-year history of smoking). Denies current alcohol and other drug abuse Allergies: Percocet Home medication: [place], albuterol, Trelegy, gabapentin, furosemide, esomeprazole PCP: Dr. Minh Hines Interactive Designer: Dr. Aquino Patient seen and examined at bedside. Currently has no new complaints. We will admit to telemetry, obtain Cardiology consult for cardiological clearance in urology consult for eventual cystoscopy during inpatient. Patient wants to sign AMA to go smoke, offered nicotine patches and she accepted. Home Meds Reported Medications Omeprazole (Gnp Omeprazole) 20 Mg Tab, 1 TAB PO DAILY, #90 TAB 1 Refill 03/04/25 Gabapentin (Gabapentin) 100 Mg Cap, 1 CAP PO TID, #90 CAP 2 Refills 03/04/25 Qldjlsajimj-Liucstotehkt-Vmqhv (Trelegy Ellipta 100-62.5-25 Mcg/INH) 1 Aer Aer, 1 AER IN, AER 03/04/25 Furosemide (Lasix) 40 Mg Tab, 40 MG PO DAILY, TAB 03/04/25 Past Medical History Cardiac: HTN Renal/: Hematuria Patient Family History: Seizure disorder G8 FATHER Smoker: Positive, 1 pack per day Review of Systems Genitourinary: Hematuria H&P Exam Vital Signs Vital Signs Date Time Temp Pulse Resp B/P (MAP) Pulse Ox O2 Delivery O2 Flow Rate FiO2 03/04/25 14:31 108/54 03/04/25 12:58 97.9 73 19 99 97.9 03/04/25 10:00 Nasal Cannula 2.0 03/04/25 10:00 28 General Appeara: Well developed, Well nourished, Normal Appearance Neuro/Mental St: Alert, Oriented Appearance: Appropriate appearance, Appropriate insight Eye contact/ Speech: Cooperative, Good eye contact, Normal speech Skin Exam: Normal inspection, Normal color, Warm/dry Labs/Xrays Labs Test 03/04/25 06:17 03/04/25 05:19 03/04/25 04:54 03/04/25 00:33 Range/Units Stool Occult Blood Negative Negative Stool Occult Blood Sample #3 Negative White Blood Count 6.5 # 4.4-10.8 10^3/uL Red Blood Count 2.90 L 4.0-5.20 10^6/uL Hemoglobin 7.1 L 12.2-16.2 g/dL Hematocrit 22.4 L 36.0-46.0 % Mean Corpuscular Volume 77.3 L 80.0-100.0 fL Mean Corpuscular Hemoglobin 24.5 L 28.0-32.0 pg Mean Corpuscular Hemoglobin Concent 31.6 L 32.0-36.0 g/dL Red Cell Distribution Width 20.9 H 11.8-14.3 % Platelet Count 305 140-450 10^3/uL Mean Platelet Volume 7.5 6.9-10.8 fL Neutrophils (%) (Auto) 81.0 H 37.0-80.0 % Lymphocytes (%) (Auto) 7.6 L 10.0-50.0 % Monocytes (%) (Auto) 7.6 0.0-12.0 % Eosinophils (%) (Auto) 3.0 0.0-7.0 % Basophils (%) (Auto) 0.8 0.0-2.0 % Neutrophils # (Auto) 5.3 1.6-8.6 10 ^3/uL Lymphocytes # (Auto) 0.5 0.4-5.4 10 ^3/uL Monocytes # (Auto) 0.5 0-1.3 10 ^3/uL Eosinophils # (Auto) 0.2 0-0.8 10 ^3/uL Basophils # (Auto) 0.1 0-0.2 10 ^3/uL Nucleated Red Blood Cells 0.2 % Sodium Level 144 136-145 mmol/L Potassium Level 2.6 L 3.5-5.1 mmol/L Chloride Level 103 98-107 mmol/L Carbon Dioxide Level 29 20-31 mmol/L Anion Gap 12 5-15 Blood Urea Nitrogen 7 L 9-23 mg/dL Creatinine 0.60 0.550-1.02 mg/dL Glomerular Filtration Rate Calc 100 >90 mL/min BUN/Creatinine Ratio 11.7 10.0-20.0 Serum Glucose 111 H 74-106 mg/dL Calcium Level 8.4 L 8.7-10.4 mg/dL Total Bilirubin 0.3 0.2-1.0 mg/dL Aspartate Amino Transferase (AST) 24 13-40 U/L Alanine Aminotransferase (ALT) 18 7-40 U/L Alkaline Phosphatase 91 46-116 U/L Total Protein 6.0 5.7-8.2 g/dL Albumin 3.9 3.2-4.8 g/dL Influenza Type A Antigen Negative Negative Influenza Type B Antigen Negative Negative SARS-CoV-2 Antigen (Rapid) Negative NEGATIVE Lactic Acid Level 1.1 0.4-2.0 mmol/L Iron Level 13 L 50-170 ug/dL Total Iron Binding Capacity 433 H 250-425 ug/dL Percent Iron Saturation 3.0 L 15-50 % Test 03/03/25 19:29 03/03/25 19:14 Range/Units Reticulocyte Count (auto) 3.30 H 0.5-1.5 % Prothrombin Time 10.9 9.3-11.8 sec Prothrombin Time INR 1.03 0.9-1.15 Activated Partial Thromboplast Time 23.0 L 24.5-34.5 SEC Hemoglobin A1c 5.9 H <5.7 % A1C Phosphorus Level 2.3 L 2.4-5.1 mg/dL Magnesium Level 1.1 L 1.6-2.6 mg/dL Ferritin 5.1 L 10-291 ng/mL Triglycerides Level 157 H < 150 mg/dL Cholesterol Level 107 < 200 mg/dL LDL Cholesterol 65 < 100 mg/dL HDL Cholesterol 33 L 40-59 mg/dL Vitamin B12 Level 469 211-911 pg/mL Vitamin D 25-Hydroxy 30.6 30.0-100 ng/mL Folic Acid 11.63 >5.38 ng/mL Thyroid Stimulating Hormone (TSH) 2.68 0.55-4.78 uIU/mL Urine Opiates Screen Neg NEGATIVE Urine Fentanyl Screen Neg NEGATIVE Urine Barbiturates Screen Neg NEGATIVE Urine Phencyclidine Screen Neg NEGATIVE Urine Amphetamines Screen Neg NEGATIVE Urine Benzodiazepines Screen Neg NEGATIVE Urine Cocaine Screen Neg NEGATIVE Urine Cannabinoids Screen Neg NEGATIVE Urine Color Colorless Yellow Urine Clarity Clear Clear Urine pH 6.5 5.0-9.0 Urine Specific [place] 1.005 1.001-1.035 Urine Protein Negative Negative Urine Ketones Negative Negative Urine Blood Negative Negative /uL Urine Nitrite Negative Negative Urine Bilirubin Negative Negative Urine Urobilinogen Normal Negative mg/dL Urine Leukocyte Esterase Trace Negative /uL Urine RBC <1 0 - 4 /hpf Urine Microscopic WBC 4 0-5 /HPF Urine Squamous Epithelial Cells Few <5 /hpf Urine Bacteria None seen None Seen /hpf Urine Glucose Normal Normal mg/dL Microbiology Date/Time Source Procedure Growth Status 03/04/25 04:54 Nose MRSA Screen - Final Complete Assessment/Plan Problem List: (1) Bladder mass (2) Hx of radiation therapy (3) Hematuria (4) Symptomatic anemia (5) Hx of cervical cancer Plan CT pending consider vesical artery embolization with Dr. Worrell IR cysto and TURBT TBA as outpatient after cardiac clearance transfuse for PRBC <7 Plan discussed with: Patient, Other DUSTIN RHOADES NP Mar 04, 2025 16:51
[2025-03-04] MEDS: InsuLIN REG 1unit/0.01ml Soln (100units/ml) SC SCH (17:00)
[2025-03-04] MEDS: ACCU-CHEK COMFORT CURVE STRIP VI SCH (17:00)
[2025-03-04] MEDS: POTASSIUM CHLORIDE 40 MEQ, LIDOCAINE 1% (LOCAL ANESTH.) 4 ML in SODIUM CHL 0.9% 250 ML IV ONE (17:18)
[2025-03-04 18:18] LABS: Chloride 103 mmol/L (98-107); Sodium 141 mmol/L (136-145)
[2025-03-04 18:19] LABS: Anion Gap 10 (5-15); Carbon Dioxide 28 mmol/L (20-31)
[2025-03-04 18:24] LABS: BUN/Creatinine Ratio 12.7 (10.0-20.0)
[2025-03-04 18:25] LABS: Magnesium 2.1 mg/dL (1.6-2.6)
[2025-03-04 18:38] LABS: Blood Urea Nitrogen 9 mg/dL (9-23); Calcium 8.5 mg/dL (8.7-10.4); Glucose 186 mg/dL (74-106); Potassium 3.5 mmol/L (3.5-5.1)
[2025-03-04] MEDS: POTASSIUM PHOSPHATE 22 MEQ in SODIUM CHL 0.9% 100 ML IV ONE (19:16)
[2025-03-04] MEDS: MELATONIN 5 MG TAB PO SCH (22:19)
[2025-03-04] MEDS: methylPREDNISolone SOD SUCC 40 MG/ML VL IV SCH (22:19)
[2025-03-05] VITALS (17 sets, daily range): BP systolic 92–125; BP diastolic 57–65; PULSE 80–109; RESP 16–20; TEMP 97.7–98.2; O2SAT 91–100
[2025-03-05 07:28] LABS: Hematocrit 21.4 % (36.0-46.0); Mean Corpuscular Hemoglobin 24.0 pg (28.0-32.0); Mean Corpuscular Volume 77.2 fL (80.0-100.0); Nucleated Red Blood Cells % 0.1 %
[2025-03-05 07:39] LABS: Alanine Aminotransferase 21 U/L (7-40); Alkaline Phosphatase 88 U/L (46-116); Anion Gap 11 (5-15); Calcium 8.8 mg/dL (8.7-10.4); Carbon Dioxide 28 mmol/L (20-31); Chloride 102 mmol/L (98-107); Hemoglobin 6.6 g/dL (12.2-16.2); Potassium 3.6 mmol/L (3.5-5.1); Sodium 141 mmol/L (136-145)
[2025-03-05 07:40] LABS: BUN/Creatinine Ratio 12.9 (10.0-20.0); Magnesium 1.7 mg/dL (1.6-2.6); Total Protein 6.3 g/dL (5.7-8.2)
[2025-03-05 07:41] LABS: Albumin 4.1 g/dL (3.2-4.8)
[2025-03-05 07:46] LABS: Bilirubin, Total 0.3 mg/dL (0.2-1.0); Blood Urea Nitrogen 8 mg/dL (9-23); Glucose 150 mg/dL (74-106)
[2025-03-05 08:37] LABS: Anisocytosis Moderate; Polychromasia Slight
--- NOTE | 2025-03-05 09:42 | DVHPN2 ---
Subjective Hb 6.6 No obvious bleeding No hematuria Changes from previous H/P or p: Changes Objective Vitals Vital Signs Date Time Temp Pulse Resp B/P (MAP) Pulse Ox O2 Delivery O2 Flow Rate FiO2 03/05/25 08:00 18 Nasal Cannula* 2 28 03/05/25 06:58 85 100 03/05/25 01:00 98.0 116/59 (78) 98.0 Intake/Output Intake and Output 03/05/25 07:00 Intake Total 1702.75 ml Balance 1702.75 ml Intake Oral 1500 ml IV Total 202.75 ml # Voids 3 # Bowel Movements 1 General Appearance: Alert, Oriented X3, Cooperative Lungs: Clear to auscultation, Normal air movement Cardiovascular: Regular rate, Normal S1, Normal S2 Abdomen: Normal bowel sounds, Soft, No tenderness Extremities: No edema Medications Current Medications Medications Dose Ordered Sig/Eun Route Start Time Stop Time Status Last Admin Dose Admin Morphine Sulfate 2 mg Q4HPRN PRN IV 03/03/25 23:00 Pantoprazole Sodium 40 mg BID IV 03/04/25 10:00 03/04/25 22:18 40 MG Nicotine 1 patch DAILY TD 03/04/25 10:00 03/04/25 09:27 1 PATCH Melatonin 5 mg HS PO 03/04/25 22:00 03/04/25 22:19 5 MG Ipratropium [place] 0.5 mg Q6HWA [facility] 03/04/25 06:00 03/05/25 06:59 0.5 MG Gabapentin 100 mg TID PO 03/04/25 06:00 03/05/25 06:00 100 MG Levalbuterol HCl 0.625 mg Q6HWA [facility] 03/04/25 06:00 03/05/25 06:59 0.625 MG Methylprednisolone Sodium Succinate 40 mg BID IV 03/04/25 22:00 03/04/25 22:19 40 MG Diagnostic Test (Pha) 1 strip ACHS 03/04/25 17:00 03/04/25 22:00 1 STRIP Insulin Human Regular ACHS SC 03/04/25 17:00 Dextrose 50 ml UD PRN IV 03/04/25 12:00 Furosemide 40 mg DAILY PO 03/05/25 10:00 Laboratory Results Laboratory Tests 03/05/25 05:50 Chemistry Test 03/04/25 17:44 03/05/25 05:50 Calcium Level 8.5 mg/dL (8.7-10.4) L 8.8 mg/dL (8.7-10.4) Magnesium Level 2.1 mg/dL (1.6-2.6) # 1.7 mg/dL (1.6-2.6) Albumin 4.1 g/dL (3.2-4.8) Total Protein 6.3 g/dL (5.7-8.2) LFT Test 03/05/25 05:50 Alanine Aminotransferase (ALT) 21 U/L (7-40) Alkaline Phosphatase 88 U/L (46-116) Aspartate Amino Transferase (AST) 20 U/L (13-40) Total Bilirubin 0.3 mg/dL (0.2-1.0) Urinalysis Test 03/03/25 19:14 Urine Color Colorless (Yellow) Urine Clarity Clear (Clear) Urine pH 6.5 (5.0-9.0) Urine Specific [place] 1.005 (1.001-1.035) Urine Protein Negative (Negative) Urine Ketones Negative (Negative) Urine Blood Negative /uL (Negative) Urine Nitrite Negative (Negative) Urine Bilirubin Negative (Negative) Urine Urobilinogen Normal mg/dL (Negative) Urine Leukocyte Esterase Trace /uL (Negative) Urine RBC <1 /hpf (0 - 4) Urine Microscopic WBC 4 /HPF (0-5) Urine Squamous Epithelial Cells Few /hpf (<5) Urine Bacteria None seen /hpf (None Seen) Urine Glucose Normal mg/dL (Normal) Microbiology Microbiology Date/Time Source Procedure Growth Status 03/04/25 04:54 Nose MRSA Screen - Final Complete 03/04/25 00:50 Blood Blood Culture - Preliminary NO GROWTH AFTER 24 HOURS OF INCUBATION. 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 daily Cardiology consult 03/05/25: Transfuse one unit RBCs Replace Mg Echo: Pending CT pending Nicotine patch Insomnia: Ambselene Russoco prn Cardiology clearance TURBT as outpatient Plan discussed with: Patient My Orders Orders - SHASHANK LOCKETT MD Procedure Category Date Status Time Cardiac DIET 03/04/25 Transmitted Diet-2gna,Lofat,Lochol Lunch Ct Ab Pelvis W Wo CT 03/04/25 Taken Con-Iv Only 13:59 Furosemide Tablet PHA 03/05/25 In Process (Lasix Tablet) 10:00 Zolpidem Tartrate PHA 03/05/25 Verified ([place]) 09:45 Hydrocodone-Acet PHA 03/05/25 Verified 5/325mg Tab ([place] 09:45 Date of Service: Mar 05, 2025 Billing Provider: SHASHANK LOCKETT MD Common Visit Codes: NOT BILLABLE SHASHANK LOCKETT MD Mar 05, 2025 09:42
[2025-03-05] MEDS ORDERED: HYDROcodone-ACET 5/325MG TAB PO PRN (09:45)
[2025-03-05] MEDS: FUROSEMIDE 40 MG TAB PO SCH (09:52)
[2025-03-05] MEDS ORDERED: AZITHROMYCIN 250 MG TAB PO SCH (10:00)
[2025-03-05] MEDS ORDERED: MORPHINE SULFATE 4 MG/ML SYR/VIAL IV PRN (10:30)
[2025-03-05] MEDS: MAGNESIUM OXIDE 400 MG TAB PO SCH (12:48)
--- NOTE | 2025-03-05 13:40 | DVHSR ---
APPROVED REPORT EXAM: Two-dimensional and M-mode echocardiogram with Doppler and color Doppler. Blood Pressure: 92/43 mmHg INDICATION SOB RISK FACTORS Obesity: Height: 4'11", Weight: 160 DIMENSIONS LVDd4.5 (3.8-5.7cm)LA (2D)3.5 (1.9-4.0cm)Aortic Root3.1 (2.0-3.7cm) LVDs3.1 (2.5-4.0cm)LA (MM) (1.9-4.0cm)Aortic Cusp Exc1.7 (1.5-2.0cm) EF (%) 60.0 (55-70%)Rt. Atrium3.9 (1.9-4.0cm)Asc. Aorta cm IVSd0.9 (0.7-1.1cm)RV (D) (1.8-2.4cm) PWd1.1 (0.7-1.1cm) Mitral Valve MitralMitral Stenosis E wave1.11m/sMV Mean GR.mmHg A wave0.81m/sMV Peak GR.mmHg E/A ratio1.42D MVAcm2 DECEL [id number] 1/2 [place] Aortic Valve Aortic ValveAortic Stenosis V11.16m/Gerry Mean GR.5mmHg V21.65m/Gerry Peak GR.11mmHg LVOT Diameter1.7 (1.8-2.4cm)Doppler AVA1.59cm2 Other Information Technically limited study due to body habitus. Conclusion Sinus rhythm. Difficult acoustic windows. Mild concentric LVH. Valves are normal. Ventricular systolic performance is preserved at 55-60% with normal RV function. Mild TR. No pericardial effusion masses or vegetations.
--- NOTE | 2025-03-05 16:09 | DVH ---
Exam: CT CT AB PELVIS W WO CON-IV ONLY History: Hematuria Comparison Study: None Technique: Multidetector spiral CT of the abdomen and pelvis was performed from lung bases to pubic s ymphysis. Initial imaging was done without IV contrast, followed by post contrast images of the abdo men and pelvis. Intravenous contrast was administered during this examination. portal venous/arteria l/multiphase imaging was obtained. Axial, coronal and sagittal multiplanar reformats were performed by the technologist on a separate workstation. Radiation Dose : CT Dose: CTDI volume is 27.15 mGy. Dose-length product is 4.61 mGy*cm Findings: Lung Bases: No acute or significant lung base finding. Normal heart size. No pleural or pericardial effusion. Liver: The liver is normal in size. No focal lesions. Normal hepatic vascular enhancement. Gallbladder and Biliary Tree: Gallbladder is surgically absent. Spleen: Unremarkable Pancreas: The pancreas is normal in appearance without focal lesions or abnormal enhancement. Adrenal Glands: Unremarkable Kidneys: Kidneys demonstrate normal symmetric enhancement without focal lesions, calculi or hydroneph rosis. Bladder: Unremarkable Bowel: The stomach is grossly normal in appearance. Small bowel and colon are normal in caliber and d istribution. The appendix is not visualized; however, no secondary findings of acute appendicitis id entified. Ascites: Absent Lymphadenopathy: No mesenteric, retroperitoneal or periportal lymphadenopathy. Abdominal Wall and Mesentery: Ostomy is seen in the right lower quadrant. Vasculature: The visualized abdominal aorta is normal in size and caliber. Abdominal and pelvic vess els demonstrate normal enhancement. Pelvic Organs: Unremarkable Musculoskeletal: Status post right hip arthroplasty. Chronic compression deformities of the L4 and L5 vertebral bodies which contain cement material from prior kyphoplasty. IMPRESSION: 1. No acute abdominal or pelvic finding. 2. No renal stones or hydronephrosis. Radiation optimization: All CT scans at this facility use at least one of these dose optimization yung hniques: automated exposure control mA and/or kV adjustment per patient size (includes targeted exam s where dose is matched to clinical indication) or iterative reconstruction.
[2025-03-05] MEDS: ZOLPIDEM TARTRATE 5 MG TAB PO PRN (21:39)
[2025-03-06] VITALS (12 sets, daily range): BP systolic 107–133; BP diastolic 55–85; PULSE 79–112; RESP 16–20; TEMP 37.1; O2SAT 92–100
[2025-03-06 06:55] LABS: Mean Corpuscular Volume 78.7 fL (80.0-100.0); Nucleated Red Blood Cells % 0.2 %
[2025-03-06 06:57] LABS: Hematocrit 26.2 % (36.0-46.0); Hemoglobin 8.3 g/dL (12.2-16.2); Mean Corpuscular Hemoglobin 25.0 pg (28.0-32.0)
[2025-03-06 07:11] LABS: Alanine Aminotransferase 26 U/L (7-40); Albumin 4.2 g/dL (3.2-4.8); Alkaline Phosphatase 87 U/L (46-116); Anion Gap 9 (5-15); BUN/Creatinine Ratio 14.8 (10.0-20.0); Blood Urea Nitrogen 9 mg/dL (9-23); Calcium 9.3 mg/dL (8.7-10.4); Carbon Dioxide 30 mmol/L (20-31); Chloride 101 mmol/L (98-107); Magnesium 1.8 mg/dL (1.6-2.6); Potassium 3.5 mmol/L (3.5-5.1); Sodium 140 mmol/L (136-145); Total Protein 6.5 g/dL (5.7-8.2)
[2025-03-06 07:12] LABS: Bilirubin, Total 0.5 mg/dL (0.2-1.0)
[2025-03-06 07:16] LABS: Glucose 132 mg/dL (74-106)
--- NOTE | 2025-03-06 15:21 | DVHDS2 ---
Discharge Summary Date of Admission Mar 03, 2025 at 22:52 Date of Discharge: Mar 06, 2025 Labs/Diagnostic Data: Laboratory Results Test 03/06/25 05:52 03/05/25 05:50 03/04/25 20:43 03/04/25 06:17 White Blood Count 10.0 10^3/uL (4.4-10.8) Red Blood Count 3.33 10^6/uL (4.0-5.20) Hemoglobin 8.3 g/dL (12.2-16.2) Hematocrit 26.2 % (36.0-46.0) Mean Corpuscular Volume 78.7 fL (80.0-100.0) Mean Corpuscular Hemoglobin 25.0 pg (28.0-32.0) Mean Corpuscular Hemoglobin Concent 31.7 g/dL (32.0-36.0) Red Cell Distribution Width 20.7 % (11.8-14.3) Platelet Count 285 10^3/uL (140-450) Mean Platelet Volume 7.7 fL (6.9-10.8) Neutrophils (%) (Auto) 91.5 % (37.0-80.0) Lymphocytes (%) (Auto) 3.7 % (10.0-50.0) Monocytes (%) (Auto) 4.6 % (0.0-12.0) Eosinophils (%) (Auto) 0.0 % (0.0-7.0) Basophils (%) (Auto) 0.2 % (0.0-2.0) Neutrophils # (Auto) 9.2 10 ^3/uL (1.6-8.6) Lymphocytes # (Auto) 0.4 10 ^3/uL (0.4-5.4) Monocytes # (Auto) 0.5 10 ^3/uL (0-1.3) Eosinophils # (Auto) 0 10 ^3/uL (0-0.8) Basophils # (Auto) 0 10 ^3/uL (0-0.2) Nucleated Red Blood Cells 0.2 % Sodium Level 140 mmol/L (136-145) Potassium Level 3.5 mmol/L (3.5-5.1) Chloride Level 101 mmol/L (98-107) Carbon Dioxide Level 30 mmol/L (20-31) Anion Gap 9 (5-15) Blood Urea Nitrogen 9 mg/dL (9-23) Creatinine 0.61 mg/dL (0.550-1.02) Glomerular Filtration Rate Calc 99 mL/min (>90) BUN/Creatinine Ratio 14.8 (10.0-20.0) Serum Glucose 132 mg/dL (74-106) Calcium Level 9.3 mg/dL (8.7-10.4) Magnesium Level 1.8 mg/dL (1.6-2.6) Total Bilirubin 0.5 mg/dL (0.2-1.0) Aspartate Amino Transferase (AST) 29 U/L (13-40) Alanine Aminotransferase (ALT) 26 U/L (7-40) Alkaline Phosphatase 87 U/L (46-116) Total Protein 6.5 g/dL (5.7-8.2) Albumin 4.2 g/dL (3.2-4.8) Platelet Estimate Adequate Polychromasia Slight Hypochromasia (manual) Slight Anisocytosis (manual) Moderate Microcytosis Moderate POC Glucose 244 mg/dl (70-106) Stool Occult Blood Negative (Negative) Stool Occult Blood Sample #3 (Negative) Test 03/04/25 04:54 03/04/25 00:33 03/03/25 19:29 03/03/25 19:14 Influenza Type A Antigen Negative (Negative) Influenza Type B Antigen Negative (Negative) SARS-CoV-2 Antigen (Rapid) Negative (NEGATIVE) Haptoglobin 185 mg/dL (37-355) Lactic Acid Level 1.1 mmol/L (0.4-2.0) Iron Level 13 ug/dL (50-170) Total Iron Binding Capacity 433 ug/dL (250-425) Percent Iron Saturation 3.0 % (15-50) Reticulocyte Count (auto) 3.30 % (0.5-1.5) Prothrombin Time 10.9 sec (9.3-11.8) Prothrombin Time INR 1.03 (0.9-1.15) Activated Partial Thromboplast Time 23.0 SEC (24.5-34.5) Hemoglobin A1c 5.9 % A1C (<5.7) Phosphorus Level 2.3 mg/dL (2.4-5.1) Ferritin 5.1 ng/mL (10-291) Triglycerides Level 157 mg/dL (< 150) Cholesterol Level 107 mg/dL (< 200) LDL Cholesterol 65 mg/dL (< 100) HDL Cholesterol 33 mg/dL (40-59) Vitamin B12 Level 469 pg/mL (211-911) Vitamin D 25-Hydroxy 30.6 ng/mL (30.0-100) Folic Acid 11.63 ng/mL (>5.38) Thyroid Stimulating Hormone (TSH) 2.68 uIU/mL (0.55-4.78) Urine Opiates Screen Neg (NEGATIVE) Urine Fentanyl Screen Neg (NEGATIVE) Urine Barbiturates Screen Neg (NEGATIVE) Urine Phencyclidine Screen Neg (NEGATIVE) Urine Amphetamines Screen Neg (NEGATIVE) Urine Benzodiazepines Screen Neg (NEGATIVE) Urine Cocaine Screen Neg (NEGATIVE) Urine Cannabinoids Screen Neg (NEGATIVE) Urine Color Colorless (Yellow) Urine Clarity Clear (Clear) Urine pH 6.5 (5.0-9.0) Urine Specific [place] 1.005 (1.001-1.035) Urine Protein Negative (Negative) Urine Ketones Negative (Negative) Urine Blood Negative /uL (Negative) Urine Nitrite Negative (Negative) Urine Bilirubin Negative (Negative) Urine Urobilinogen Normal mg/dL (Negative) Urine Leukocyte Esterase Trace /uL (Negative) Urine RBC <1 /hpf (0 - 4) Urine Microscopic WBC 4 /HPF (0-5) Urine Squamous Epithelial Cells Few /hpf (<5) Urine Bacteria None seen /hpf (None Seen) Urine Glucose Normal mg/dL (Normal) Other Laboratory Tests 03/06/25 05:52 Brief Hx & Hospital Course: Final diagnoses: Hematuria Anemia due to iron deficiency and blood loss Congestive heart failure, systolic versus diastolic, acute on chronic COPD Chronic respiratory failure on home O2 Prediabetic History of breast cancer and cervical cancer Acute hypoxic respiratory failure Hypokalemia Hypomagnesemia Hypophosphatemia 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 Mann as scheduled Medications: Same home meds but DC aspirin Scheduled Furosemide (Lasix), 40 MG PO DAILY, (Reported) Gabapentin (Gabapentin), 1 CAP PO TID, (Reported) Omeprazole (Gnp Omeprazole), 1 TAB PO DAILY, (Reported) Miscellaneous Medications [id number] (Trelegy Ellipta 100-62.5-25 Mcg/INH), 1 AER IN, (Reported) Discharge Statement: "Patient was advised to return to the ER or call 911 if any headaches, dizziness, shortness of breath, chest pain, abdominal pain, bleeding, fevers, or worsening of medical condition. Patient was counseled about treatment plan, medications, possible side effects, patientverbalized understanding. All questions were answered to the best of my ability. 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
== END 2025-03-06 19:27 | disposition home or self-care (01) | DRG 686 ==
LOC: ER 18:45 → OVERFLOW 22:52 → TELE-CENTR 03-04 03:27
PROVIDERS: ADMIT Internal Medicine Geriatric Medicine; ATTEND Internal Medicine Geriatric Medicine
PROC: 30233N1 Transfusion of Nonautologous Red Blood Cells into Peripheral Vein, Percutaneous Approach (ICD-10-PCS; principal; 2025-03-05)
DX: D41.4 Neoplasm of uncertain behavior of bladder (principal); I50.43 Acute on chronic combined systolic (congestive) and diastolic (congestive) heart failure; J44.1 Chronic obstructive pulmonary disease with (acute) exacerbation; J96.10 Chronic respiratory failure, unspecified whether with hypoxia or hypercapnia; E83.42 Hypomagnesemia; E83.39 Other disorders of phosphorus metabolism; Z20.822 Contact with and (suspected) exposure to COVID-19; G40.909 Epilepsy, unspecified, not intractable, without status epilepticus; G62.0 Drug-induced polyneuropathy; I11.0 Hypertensive heart disease with heart failure; R73.03 Prediabetes; G47.00 Insomnia, unspecified; E87.6 Hypokalemia; Z85.41 Personal history of malignant neoplasm of cervix uteri; Z99.81 Dependence on supplemental oxygen; Z96.641 Presence of right artificial hip joint; Z93.3 Colostomy status; K21.9 Gastro-esophageal reflux disease without esophagitis; Z90.710 Acquired absence of both cervix and uterus; Z85.3 Personal history of malignant neoplasm of breast; Z82.0 Family history of epilepsy and other diseases of the nervous system; Z80.3 Family history of malignant neoplasm of breast; Z72.0 Tobacco use; Z92.3 Personal history of irradiation; D50.0 Iron deficiency anemia secondary to blood loss (chronic)
CPT/HCPCS: 36415; 71045; 74178; 76857; 80048; 80053; 80061; 80307; 81001; 82270; 82306; 82607; 82728; 82746; 82962; 83010; 83036; 83540; 83550; 83605; 83735; 84100; 84443; 85025; 85045; 85610; 85730; 86850; 86900; 86901; 86920; 87040; 87081; 87086; 87426; 87804; 93005; 93306; 94640; 96360; 99291; G0378; J2003; J2470; J3480